=== PATIENT | female | born 1985 | race African-American/Black ===

== ENCOUNTER 2019-01-02 16:15 | Emergency (ER) | payer MEDICAID ==
[~2019-01-02] VITALS: Ht 162.6 cm; Wt 95.0 kg
[2019-01-02] MEDS ORDERED: KETOROLAC 60MG/2ML VIAL IM ONE (16:45)
[2019-01-02] MEDS ORDERED: LORAZEPAM 0.5MG TABLET PO ONE (16:45)
[2019-01-02 18:45] VITALS: BP 130/80
== END 2019-01-02 18:46 | disposition home or self-care (01) ==
LOC: ER 16:31
DX: M50.30 Other cervical disc degeneration, unspecified cervical region (principal); V43.62XA Car passenger injured in collision with other type car in traffic accident, initial encounter; Y93.9 Activity, unspecified; Y92.411 Interstate highway as the place of occurrence of the external cause; Z96.649 Presence of unspecified artificial hip joint
CPT/HCPCS: 70490; 73030; 81025; 96372; 99284; J1885; L3670